=== PATIENT | female | born 1950 | race African-American/Black ===

== ENCOUNTER → 2016-05-09 | Outpatient (CLI) | payer OTHER, MEDICARE ==
[~2016-05-09] MED LIST: CARDIZEM CD240 MG PO; CARDURA 1MG TAB1 MG PO; CRESTOR5 MG PO; DIAZEPAM2 MG PO; EXFORGE 10 MG-31 TAB PO; HYDROCHLOROTH12.5 M1 PO; HYDROCHLOROTHIA25 M1 PO; JANUMET 1000 MG1 TAB PO; K + POTASSIUM20 MEQ PO; LEVOTHYROXIN0.125 MG PO; LISINOPRIL 10MG10 MG PO; MAXZIDE 25 MG-31 TAB PO; METFORMIN 500M500 MG PO; METFORMIN1000 MG PO; METFORMIN500 MG PO; METOPROLOL SUCC25 M1 PO; MIRALAX17 GM/DOSE PO; ONGLYZA5 MG PO; PHENERGAN 12.12.5 M1 PO; PREDNISONE 10MG10 MG PO; PREDNISONE 20MG20 MG PO; PREDNISONE 5MG.5 MG PO; PREMARIN 0.3MG0.3 MG PO; REGLAN 5MG TABLE5 MG PO; RESTORIL 30MG C30 MG PO; SYNTHROID0.175 MG PO; TRAMADOL 50MG T50 M1 PO
--- NOTE | 2016-05-09 19:54 | RADIOLOGY REPORT PS360 ---
KNEE-3 VIEWS-RT ORDERING PHYSICIAN : Anoop Cruz MD PATIENT AGE: 65 years GENDER: Female INDICATION: RT KNEE PAINRight knee replacement 16 years ago TECHNIQUE: 3 views right knee COMPARISON: No previous studies for comparison in our system FINDINGS Right kidney a. Components appear to be in good position with no fracture nor obvious loosening.. Older type component. . There is some minimal fragmentation seen along the lateral aspect of the lateral tibial plateau component and I believe this is most likely nonspecific dystrophic bone type changes. Unlikely significant of significance... Comparison to old studies if available elsewhere to evaluate for interval change may be helpful. If pain persists follow-up with orthopedics suggested.. There is a joint effusion at the suprapatellar bursa noted. IMPRESSION: ---- Right TK A. No evidence of fracture nor loosening. Minimal dystrophic calcification at lateral margin of joint However there is a right joint effusion evident at suprapatellar bursa. Suggest follow-up with orthopedics
== END ==
LOC: RAD 13:48
DX: M25.561 Pain in right knee (principal)

== ENCOUNTER → 2017-01-24 | Outpatient (CLI) | payer OTHER, MEDICARE ==
--- NOTE | 2017-01-24 12:57 | CARDIOVASCULAR REPORT ---
"Venous Exam Indications: 729.5 Pain in limb. IMPRESSIONS 1. There is no evidence of significant Reflux. 2. No evidence of deep or superficial vein thrombosis involving the right lower extremity Right lower extremity venous duplex evaluation. Doppler flow study including spectral analysis, color and jama scale imaging. Location: Vascular laboratory. Patient status: Outpatient. Tables: Venous flow and imaging: + + + + |Location |Overall |Flow properties | + + + + |Right common femoral |Patent |Normal phasicity; | | | |spontaneous; normal | | | |augmentation; compressible | + + + + |Right saphenofemoral |Patent |Compressible | |junction | | | + + + + |Right profunda femoral |Patent |Compressible | + + + + |Right femoral |Patent |Normal phasicity; | | | |spontaneous; normal | | | |augmentation; compressible | + + + + |Right greater saphenous |Patent |Normal phasicity; | | | |spontaneous; normal | | | |augmentation; compressible | + + + + |Right popliteal |Patent |Normal phasicity; | | | |spontaneous; normal | | | |augmentation; compressible | + + + + |Right posterior tibial |Difficult |Compressible | | |study | | + + + + |Right peroneal |Difficult |Compressible | | |study | | + + + + |Right gastrocnemius |Patent |Compressible | + + + + |Right soleal |Patent |Compressible | + + + + (Report amended ) Electronically signed by: Nishant Phoenix [id number]"
== END ==
LOC: RAD 12:21
DX: M79.604 Pain in right leg (principal)